=== PATIENT | male | born 1990 | race Caucasian/White ===

== ENCOUNTER 2019-05-15 17:25 | Emergency (ER) | payer SELFPAY ==
[2019-05-15 19:45] VITALS: BP 130/96
--- NOTE | 2019-05-15 19:53 | ER Document Report ---
HPI - HPI Patient complains to provider of: Contact lens issue Time Seen by Provider: 05/15/19 19:31 Pain Level: 5 Context: Patient is otherwise healthy 29-year-old male presents to the emergency department for a "hard" contact stuck in his left eye. Patient states he feels in his left eye but he is unable to get up. Patient is also concerned because his fingers are dirty please he just came from work. States he does not want to place him in his eye. Patient denies any trauma or injury. States he wiped his left eye and then felt his contact lens move. - DERM Skin Color: Normal Past Medical History - General Information source: Patient - Social History Smoking Status: Current Every Day Smoker Frequency of alcohol use: Rare Drug Abuse: Marijuana Family History: Reviewed & Not Pertinent Patient has suicidal ideation: No Patient has homicidal ideation: No Renal/ Medical History: Denies: Hx Peritoneal Dialysis Psychiatric Medical History: Reports: Hx Depression - bipolar Vertical Provider Document - CONSTITUTIONAL Agree With Documented VS: Yes Notes: GENERAL: Alert, interacts well. No acute distress. HEAD: Normocephalic, atraumatic. EYES: Pupils equal, round, and reactive to light. Extraocular movements intact. No conjunctival injection noted bilaterally ENT: Oral mucosa moist, tongue midline. NECK: Full range of motion. Supple. Trachea midline. LUNGS: Clear to auscultation bilaterally, no wheezes, rales, or rhonchi. No respiratory distress. HEART: Regular rate and rhythm. No murmur ABDOMEN: Soft, non-tender. Non-distended. Bowel sounds present in all 4 quadrants. EXTREMITIES: Moves all 4 extremities spontaneously. No edema, normal radial and dorsalis pedis pulses bilaterally. No cyanosis. BACK: no cervical, thoracic, lumbar midline tenderness. No saddle anesthesia, normal distal neurovascular exam. NEUROLOGICAL: Alert and oriented x3. Normal speech. cranial nerves II through XII grossly intact. PSYCH: Normal affect, normal mood. SKIN: Warm, dry, normal turgor. No rashes or lesions noted. Course - Re-evaluation Re-evalutation: Contact lens was easily removed with a moist sterile cotton tip applicator. Once contact lens was removed patient states "oh that feels so much better." Patient is denying any pain, foreign body sensation, irritation to the left eye. Patient states "oh I can see again." Discussed potential fluorescein stain of the left eye to rule out corneal abrasion due to contact lens. Patient wishes to refuse at this time. States "it feels great, I do not feel like I have anything stuck in my eye." Discussed proper use of contact lenses and need to follow-up with ophthalmology. Patient stable for discharge. - Vital Signs Vital signs: Temp Pulse Resp BP Pulse Ox 97.8 F 87 16 130/96 H 97 05/15/19 19:42 05/15/19 19:42 05/15/19 19:42 05/15/19 19:42 05/15/19 17:39 Discharge - Discharge Clinical Impression: Left eye complaint, Wears contact lenses Condition: Stable Disposition: HOME, SELF-CARE Additional Instructions: As we discussed you have been seen and treated in the emergency department for a contact lens stuck in your left eye. Please make sure you use and wear contact lenses as prescribed. 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 Please return to the emergency room for any further concerns.
== END 2019-05-15 20:20 | disposition home or self-care (01) ==
LOC: ER 17:25
DX: T15.92XA Foreign body on external eye, part unspecified, left eye, initial encounter (principal); X58.XXXA Exposure to other specified factors, initial encounter; F17.200 Nicotine dependence, unspecified, uncomplicated
CPT/HCPCS: 99283

== ENCOUNTER 2019-11-15 12:26 | Emergency (ER) | payer OTHER ==
[2019-11-15] MEDS ORDERED: CYCLOBENZAPRINE HCL 10 MG TABLET PO ONE (14:07)
[2019-11-15] MEDS ORDERED: KETOROLAC TROMETHAMINE INJ/PF 30 MG/1 ML SDV IM ONE (14:07)
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
[2019-11-15 14:49] VITALS: BP 116/72
== END 2019-11-15 14:40 | disposition home or self-care (01) ==
LOC: ER 12:26
DX: M62.830 Muscle spasm of back (principal); S13.4XXA Sprain of ligaments of cervical spine, initial encounter; M62.838 Other muscle spasm; M54.2 Cervicalgia; V59.9XXA Occupant (driver) (passenger) of pick-up truck or van injured in unspecified traffic accident, initial encounter
CPT/HCPCS: 99283; 96372; J1885

== ENCOUNTER 2020-11-13 01:09 | Emergency (ER) | payer SELFPAY ==
[2020-11-13 01:43] LABS: ABSOLUTE BASOPHILS # (AUTO) 0.1 10^3/uL (0.0-0.2); ABSOLUTE EOSINOPHILS # (AUTO) 0.2 10^3/uL (0.0-0.6); ABSOLUTE LYMPHOCYTES (AUTO) 2.8 10^3/uL (0.5-4.7); ABSOLUTE MONOCYTES (AUTO) 0.7 10^3/uL (0.1-1.4); BASOPHILS % (AUTO) 0.6 % (0-2); EOSINOPHILS % (AUTO) 1.6 % (0-6); HEMATOCRIT 43.2 % (37.9-51.0); HEMOGLOBIN 15.1 g/dL (13.5-17.0); LYMPHOCYTES % (AUTO) 23.8 % (13-45); MEAN CORPUSCULAR HEMOGLOBIN 30.4 pg (27.0-33.4); MEAN CORPUSCULAR HGB CONC 34.9 g/dL (32.0-36.0); MEAN CORPUSCULAR VOLUME 87 fl (80-97); MONOCYTES % (AUTO) 5.9 % (3-13); PLATELET COUNT 286 10^3/uL (150-450); RED BLOOD COUNT 4.96 10^6/uL (4.35-5.55); RED CELL DISTRIBUTION WIDTH 12.7 % (11.5-14.0); SEGMENTED NEUTROPHILS % (AUTO) 68.1 % (42-78); TOTAL CELLS COUNTED % (AUTO) 100 %; WHITE BLOOD COUNT 11.8 10^3/uL (4.0-10.5)
--- NOTE | 2020-11-13 01:52 | ER Document Report ---
Entered by CAMILLE OSORIO SCRIBE 11/13/20 0151 Acting as scribe for:MERE DELVALLE IV, MD ED General - General Chief Complaint: Possible Overdose Stated Complaint: TOOK TOO MANY MEDICATION PILLS AT ONCE Primary Care Provider: MADAI ESCALONA MD [Primary Care Provider] - Follow up as needed Mode of Arrival: Ambulatory Information source: Patient, Parent Notes: This 30-year-old male patient presents to the emergency department today after an accidental overdose of trazadone. Patient accidentally took x8 100 mg trazodone at around 12:30 AM this morning. Patient reports he meant to take his normal x2 pills of trazodone with 6 pills of Motrin but instead took 8 trazadone. Mom at bedside reports that the patient has been taking lots of ibuprofen recently due to bad teeth. Patient denies doing this in an attempt to hurt himself. - Related Data Allergies/Adverse Reactions: camphor [From [facility]] Allergy (Verified 11/15/19 14:02) pramoxine [From [facility]] Allergy (Verified 11/15/19 14:02) zinc acetate [From [facility]] Allergy (Verified 11/15/19 14:02) Home Medications: trazadone 200mg PO, trintellix 10mg Past Medical History - General Information source: Patient - Social History Smoking Status: Current Every Day Smoker Cigarette use (# per day): Yes Chew tobacco use (# tins/day): No Frequency of alcohol use: Social Drug Abuse: None Lives with: Family Family History: Reviewed & Not Pertinent Psychiatric Medical History: Reports: Hx Bipolar Disorder, Hx Depression Surgical Hx: Negative Review of Systems - Review of Systems Constitutional: See HPI, Other - accidental overdose of x8 100mg trazadone EENT: No symptoms reported Cardiovascular: No symptoms reported Respiratory: No symptoms reported Gastrointestinal: See HPI, Nausea Genitourinary: No symptoms reported Male Genitourinary: No symptoms reported Musculoskeletal: No symptoms reported Skin: No symptoms reported Hematologic/Lymphatic: No symptoms reported Neurological/Psychological: No symptoms reported -: Yes All other systems reviewed and negative Physical Exam - Vital signs Vitals: Temp 98.6 F 11/13/20 01:11 - Notes Notes: Physical Exam: General: Somnolent but arousable. Answers questions appropriately. Denies suicidal ideation. HEENT: Normocephalic. Atraumatic. PERRL. Extraocular movements intact. Oropharynx clear. Conjunctival injection bilaterally. Neck: Supple. Non-tender. Respiratory: No respiratory distress. Clear and equal breath sounds bilaterally. Cardiovascular: Regular rate and rhythm. Abdominal: Normal Inspection. Non-tender. No distension. Normal Bowel Sounds. Back: No gross abnormalities. Extremities: Moves all four extremities. Upper extremities: Normal inspection. Normal ROM. Lower extremities: Normal inspection. No edema. Normal ROM. Neurological: Normal cognition. AAOx4. Normal speech. Psychological: Normal affect. Normal Mood. Skin: Warm. Dry. Normal color. Course - Re-evaluation Re-evalutation: 11/13/20 04:30 Differential diagnosis: Accidental overdose, intentional prescription drug abuse, intentional overdose 11/13/20 04:43 Medical decision making: Patient's EKG findings appear to be improving. Patient has been resting but is arousable and is maintaining his airway. Plan is to discharge patient once he reaches the 6-hour mariel of observation from the time of actual ingestion. 11/13/20 06:44 6-hour observation mariel is been reached. Patient is resting in bed he is easily awoken and is in no acute distress heart rate is 75, O2 sats are 96%, blood pressure is 105/60, respiration rate is 10. Results of ED MSE discussed with patient and patient's mother. All questions were answered prior to discharge. Emergency signs and symptoms, reasons to return to the emergency department discussed with patient and patient's mother. - Vital Signs Vital signs: Temp Pulse Resp BP Pulse Ox 98.3 F 14 122/64 96 11/13/20 04:30 11/13/20 05:01 11/13/20 05:00 11/13/20 05:01 - Laboratory Results Result Diagrams: 11/13/20 01:20 11/13/20 01:20 Laboratory Results Interpreted: 11/13/20 11/13/20 11/13/20 01:20 01:20 04:07 WBC 11.8 H Glucose 134 H Urine Protein 30 H Urine Urobilinogen 2.0 H Salicylates < 1.0 L Acetaminophen < 10 L Critical Laboratory Results Reviewed: No Critical Results - Radiology Results Critical Radiology Results Reviewed: No Critical Results - EKG Interpretation by Me Additional EKG results interpreted by me: 01/24/21 01:53 EKG obtained on 11/13/2020 at 0130 hrs. was interpreted by this MD. Findings: Normal sinus rhythm, rate 75, normal axis, AL interval appears to be within nor mal limits, P waves preceding QRS complexes, incomplete right bundle branch block is present, QTC is 496, there are no obvious patterns of ST segment elevation, depression or reciprocal changes seen to suggest acute myocardial ischemia or infarction. There is no prior EKG available for comparison. Impression: Normal sinus rhythm with incomplete right bundle branch block and nonspecific ST segments. 11/13/20 04:07 Repeat EKG performed on 11/13/2020 0403 hrs. was interpreted by this MD. Findings: Normal sinus rhythm, rate 86, normal axis, AL interval appears to be within normal limits, P waves preceding QRS complexes, incomplete right bundle branch block is still present, QTC is now 464 down from 496, QRS duration is 104 now, down from 118 on prior EKG, there are no obvious patterns of ST segment elevation, depression or reciprocal changes seen to suggest acute myocardial ischemia or infarction. Impression normal sinus rhythm with incomplete right bundle branch block in nonspecific ST segments. Discharge - Discharge Clinical Impression: Accidental medication overdose Qualifiers: Encounter type: initial encounter Qualified Code(s): T50.901A - Poisoning by unspecified drugs, medicaments and biological substances, accidental (unintentional), initial encounter Condition: Stable Disposition: HOME, SELF-CARE Additional Instructions: Return to the Emergency Department without delay if any worse. Pay attention to the medications you are taking, especially your prescription medications and take them only as prescribed. HOME CARE INSTRUCTIONS & INFORMATION: Thank you for choosing us for your medical needs. We hope you're satisfied with the care you received. After you leave, you must properly care for your problem and, at the same time, observe its progress. Any condition can change. Some illnesses can change rapidly over hours or days. If your condition worsens, return to the Emergency Department or see your physician promptly. ABOUT YOUR X-RAYS AND EKG'S: If you had an EKG or X-rays taken, they have been read by the Emergency Physician. The X-rays and EKG's will also be read by a Radiologist or Production Support Engineer within 24 hours. If discrepancies are noted, you will be notified by telephone. Please be certain the ED has a correct telephone number & address where you can be reached. Also, realize that some fractures or abnormalities do not show up on initial X-rays. If your symptoms continue, see your physician. ABOUT YOUR LABORATORY TEST: If you had laboratory tests, the results have been reviewed by the Emergency Physician. Some test results (for example cultures) may not be available for several days. You will be contacted if any test result shows you need additional treatment. Please be certain the ED has a correct telephone number and address where you can be reached. ABOUT YOUR MEDICATIONS: You will receive instructions on how to take your medicine on the prescription label you receive. Additional information may be provided by the Pharmacy. If you have questions afterwards, call the ED for clarification or further instructions. Some prescribed medications may cause drowsiness. Do not perform tasks such as driving a car or operating machinery without consulting your Pharmacist. If you feel you need a refill of pain medication, your condition will need re-evaluation. Please do not call for a refill of any medication. ABOUT YOUR SIGNATURE: Signature of this document acknowledges to followin. Understanding that you received emergency treatment and that you may be released before al medical problems are known or treated. Please be certain the ED has a correct phone number & address where you can be reached. 2. Acknowledgement that you will arrange for follow-up care as recommended. 3. Authorization for the Emergency Physician to provide information to your follow-up Physician in order to maximize your care. AT ANY TIME, IF YOUR SYMPTOMS CHANGE SIGNIFICANTLY OR WORSEN OR YOU DEVELOP NEW SYMPTOMS, RETURN TO THE EMERGENCY DEPARTMENT IMMEDIATELY FOR RE-EVALUATION. OUR GOAL IS TO PROVIDE EXCELLENT MEDICAL CARE! WE HOPE THAT WE HAVE MET YOUR EXPECTATIONS DURING YOUR EMERGENCY DEPARTMENT VISIT AND THAT YOU FEEL YOU HAVE RECEIVED EXCELLENT CARE! Referrals: MADAI ESCALONA MD [Primary Care Provider] - Follow up as needed I personally performed the services described in the documentation, reviewed and edited the documentation which was dictated to the scribe in my presence, and it accurately records my words and actions.
[2020-11-13] MEDS ORDERED: ONDANSETRON HCL INJ/PF 4 MG/2 ML SDV IV ONE (01:54)
[2020-11-13] MEDS ORDERED: NORMAL SALINE 1000 ML 1,000 ML IV ONE (01:54)
[2020-11-13 01:57] LABS: ALBUMIN 4.7 g/dL (3.5-5.0); ALKALINE PHOSPHATASE 63 U/L (38-126); ANION GAP 12 (5-19); ASPARTATE AMINO TRANSFERASE 27 U/L (17-59); BILIRUBIN,DIRECT 0.3 mg/dL (0.0-0.4); BILIRUBIN,TOTAL 0.4 mg/dL (0.2-1.3); BLOOD UREA NITROGEN 18 mg/dL (7-20); CALCIUM 9.1 mg/dL (8.4-10.2); CARBON DIOXIDE 24 mmol/L (22-30); CHLORIDE 104 mmol/L (98-107); GLUCOSE 134 mg/dL (75-110); POTASSIUM 4.1 mmol/L (3.6-5.0); TOTAL PROTEIN 7.2 g/dL (6.3-8.2)
[2020-11-13 02:12] LABS: ALCOHOL < 10 mg/dL (NONE DETECTED)
[2020-11-13 02:13] LABS: ACETAMINOPHEN < 10 ug/mL (10-30); SALICYLATE < 1.0 mg/dL (2.0-20.0)
[2020-11-13 05:00] LABS: APPEARANCE,URINE CLEAR; BILIRUBIN,URINE NEGATIVE (NEGATIVE); COLOR,URINE YELLOW; GLUCOSE, URINE NEGATIVE (NEGATIVE); KETONES,URINE NEGATIVE (NEGATIVE); LEUKOCYTE ESTERASE,URINE NEGATIVE (NEGATIVE); NITRITE,URINE NEGATIVE (NEGATIVE); PROTEIN,URINE 30 mg/dL (NEGATIVE); URINE SPECIFIC GRAVITY 1.021
[2020-11-13 05:12] LABS: URINE AMPHETAMINES SCREEN NEGATIVE; URINE BARBITURATES SCREEN NEGATIVE; URINE BENZODIAZEPINES SCREEN NEGATIVE; URINE COCAINE SCREEN NEGATIVE; URINE MARIJUANA (THC) SCREEN UNCONFIRMED POSITIVE; URINE METHADONE SCREEN NEGATIVE; URINE PHENCYCLIDINE SCREEN NEGATIVE
[2020-11-13 06:58] VITALS: BP 104/62
--- NOTE | 2020-11-13 08:31 | EKG REPORT ---
SEVERITY:- NORMAL ECG - SINUS RHYTHM ST ELEV, PROBABLE NORMAL EARLY REPOL PATTERN : Confirmed by: David Aguilera MD 13-Nov-2020 08:30:39
--- NOTE | 2020-11-13 08:32 | EKG REPORT ---
SEVERITY:- ABNORMAL ECG - SINUS RHYTHM INCOMPLETE RIGHT BUNDLE BRANCH BLOCK : Confirmed by: David Aguilera MD 13-Nov-2020 08:30:57
--- OUTSIDE RECORDS SUMMARY | 2020-11-15 10:39 | XMS REPORT ---
:1990 [facility] [address] [place] [address] Care Team Providers Name Role Phone ZULAY MCGOWAN Primary Care Physician Unavailable Drake Attending Clinician Unavailable KRIS Attending Clinician Unavailable Allergies, Adverse Reactions, Alerts Allergy Allergy Type Status Severity Reaction(s) Onset Inactive Treat ing Comments Name Date Date Clinician CEFACLOR Drug allergy Active Unknown 2020-09 00:00:0 0 Cefaclor Propensity Active Hives 2019-10 to adverse -06 reactions to 00:00:0 drug 0 CECLOR CECLOR Active 2019-02 00:00:0 0 Medications Ordered Filled Start Stop Current Ordering Indication Dosage Frequency Signature Comments Components Medication Medication Date Date Medication? Clinician (SIG) Name Name prednisoLON 2019-0 No 1[drp] Q.25D Place 1 E acetate 9-21 drop into (PRED 00:00: the left FORTE) 1 % 00 eye 4 ophthalmic (four) suspension times daily Please begin medication after scheduled procedure. ofloxacin 2020-0 No 1[drp] Q.25D Place 1 (OCUFLOX) 8-17 drop into 0.3 % 00:00: the left ophthalmic 00 eye 4 solution (four) times daily Please begin medication after scheduled procedure. prednisoLON 2020-0 No 1[drp] Q.25D Place 1 E acetate 8-17 drop into (PRED 00:00: the left FORTE) 1 % 00 eye 4 ophthalmic (four) suspension times daily Please begin medication after scheduled procedure. oxyCODONE-a 2019- 2020- No 1{tbl} Q6H Take 1 cetaminophe 8-17 08-22 tablet by n 00:00: 23:59 mouth (PERCOCET) 00 :00 every 6 5-325 mg (six) tablet hours as needed for Pain for up to 5 days ofloxacin Yes 1[drp] Q.25D Place 1 (OCUFLOX) 8-05 drop into 0.3 % 00:00: the left ophthalmic 00 eye 4 solution (four) times daily Please begin medication after scheduled procedure. prednisoLON 2019- 2020- No 1[drp] Q.25D Place 1 E acetate 8-05 09-21 drop into (PRED 00:00: 00:00 the left FORTE) 1 % 00 :00 eye 4 ophthalmic (four) suspension times daily Please begin medication after scheduled procedure. olopatadine Yes 1[drp] QD Place 1 (PAZEO) 0.7 1-06 drop into % 00:00: both eyes ophthalmic 00 once daily solution OLANZapine 2018-10 Yes 10mg QD Take 10 mg (ZYPREXA) 1-08 by mouth 10 MG 00:00: nightly tablet 00 escitalopra 2018-10 Yes 10mg QD Take 10 mg m oxalate 08 by mouth (LEXAPRO) 00:00: once daily 10 MG 00 tablet riboflavin No [id number] 1{kit} 5-phosphate (PHOTREXA) cross-linki ng kit riboflavin No [id number] 1{kit} 1 kit, 5-phosphate LEFT Eye, (PHOTREXA) Once, Mon cross-linki 06/06/20 at ng kit 1615, For 1 dose Problems This patient has no known problems. Procedures Procedure Date / Time Performed Performing Clinician Ana radha OFFICE/OUTPATIENT VISIT [facility] 2020-09-20 08:45:00 CXL PROCEDURE - OS - LEFT EYE 2020-06-06 18:43:43 Sugey Goode Results Test Description Test Time Test Comments Text Results Atomic Results Result Comments TSH W/REFLEX TO FT4 2020-09-20 09:48:00 1.58 C-REACTIVE PROTEIN 2020-09-20 09:48:00 0.7 HEPATITIS C AB W/REFL TO HCV RNA, QN, PCR 2020-09-20 09:48:00 Test Item Value Reference Range Comments SIGNAL TO CUT-OFF (test code = 33569516) 0.01 <1.00 HEPATITIS C ANTIBODY (test code = 64081875) NON-REACTIVE NON- REACTIVE SED RATE BY MODIFIED [id number] 09:48:002CBC (INCLUDES DIFF/PLT) 2020-09-20 09:48:00 Test Item Value Reference Range Comments ABSOLUTE MONOCYTES (test code = 34247133) 448 cells/uL 200-95 0 ABSOLUTE NEUTROPHILS (test code = 35588789) 4627 cells/uL 1500 -7800 BASOPHILS (test code = 10639502) 0.3 % MONOCYTES (test code = 51626469) 6.4 % PLATELET COUNT (test code = 59396873) 297 Thousand/uL 140-400 RDW (test code = 07082891) 11.9 % 11.0-15.0 MCH (test code = 72808732) 30.0 pg 27.0-33.0 NEUTROPHILS (test code = 73451615) 66.1 % ABSOLUTE BASOPHILS (test code = 15241471) 21 cells/uL 0-200 ABSOLUTE LYMPHOCYTES (test code = 70144473) 1785 cells/uL 850- 3900 HEMOGLOBIN (test code = 29609840) 15.4 g/dL 13.2-17.1 RED BLOOD CELL COUNT (test code = 60624628) 5.13 Million/uL 4.20 -5.80 MCV (test code = 86773002) 89.9 fL 80.0-100.0 WHITE BLOOD CELL COUNT (test code = 7.0 Thousand/uL 3.8-10.8 58357072) MPV (test code = 21699070) 10.4 fL 7.5-12.5 ABSOLUTE EOSINOPHILS (test code = 69096783) 119 cells/uL 15-5 00 LYMPHOCYTES (test code = 64473355) 25.5 % MCHC (test code = 13071953) 33.4 g/dL 32.0-36.0 EOSINOPHILS (test code = 60400273) 1.7 % HEMATOCRIT (test code = 29815772) 46.1 % 38.5-50.0 COMPREHENSIVE METABOLIC [id number] 09:48:00 Test Item Value Reference Range Comments eGFR NON-AFR. IRANIAN (test code = 115 mL/min/1.73m2 > OR = 60 65619245) CARBON DIOXIDE (test code = 76125768) 24 mmol/L 20-32 AST (test code = 46809811) 17 U/L 10-40 ALT (test code = 37920540) 12 U/L 9-46 CREATININE (test code = 63105711) 0.86 mg/dL 0.60-1.35 ALBUMIN (test code = 70347373) 5.0 g/dL 3.6-5.1 GLOBULIN (test code = 96586638) 2.2 g/dL (calc) 1.9-3.7 CALCIUM (test code = 12785665) 9.7 mg/dL 8.6-10.3 ALBUMIN/GLOBULIN RATIO (test code = 2.3 (calc) 1.0-2.5 92508174) BUN/CREATININE RATIO (test code = NOT APPLICABLE (calc) 6-22 80673728) BILIRUBIN, TOTAL (test code = 0.5 mg/dL 0.2-1.2 92700745) CHLORIDE (test code = 40085082) 105 mmol/L 98-110 eGFR (test code = 133 mL/min/1.73m2 > OR = 60 46469450) POTASSIUM (test code = 97135389) 4.3 mmol/L 3.5-5.3 GLUCOSE (test code = 00234191) 84 mg/dL 65-99 SODIUM (test code = 51524435) 139 mmol/L 135-146 PROTEIN, TOTAL (test code = 60097707) 7.2 g/dL 6.1-8.1 ALKALINE PHOSPHATASE (test code = 60 U/L 36-130 43566946) UREA NITROGEN (BUN) (test code = 12 mg/dL 7-25 25229167) HIV 1/2 ANTIGEN/ANTIBODY,FOURTH GENERATION [id number] 09:48:00NON-REACTIVE CXL Procedure - OS - Left [id number] 18:49:11Time OutConfirmed correct patient, procedure, site, and patient consented. Notes1. 9 mm epithelium was removed2. 1 drop of Photrexa Viscous was applied topically every 2 min for 30 min3. Anterior chamber was checked for riboflavin flare Yellow flare was detected, proceed to the next step4. Ultrasound pachymetry was performed as follows: Since >400 m, proceed to irradiation5. 30 minutes UV exposure with KXL System was applied to the cornea with the following settin nm UV, 3mW/cm26. Photrexa Viscous was applied to the cornea every 2 min during the UV exposure with the KXL system At the conclusion of the procedure, the cornea was irrigated with BSS solution and topical antibiotic and corticosteroid was applied.The patient tolerated the procedure well and was discharged with post-operative instructions.SARS-CoV-2 RNA Resp Ql [id number] 00:00:00 Test Item Value Reference Range Comments SARS-CoV-2 RNA Resp Ql Not detected [facility] Case JOE+probe (test code = ID: COVID [id number]) Assessments Condition Name Status Diagnosis Date Treating Clinici an Major depressive disorder, single episode, Active moderate Abnormal weight loss Active Other fatigue Active Other integration consultant (current) drug therapy Active 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 Encounters Start End Encounter Admission Attending Care Care Encounter Date/Time Date/Time Type Type Clinicians Facility Department ID 2020-09-20 2020-09-20 [id number]:00 08:45:00 [facility] [id number] s [id number] and [id number] [facility], 2020-08-12 2020-08-12 Outpatient [facility] [id number] 00:00:00 00:00:00 2020-08-12 2020-08-12 Outpatient [facility] [id number] 00:00:00 00:00:00 2020-07-11 2020-07-11 Outpatient [facility] [id number] 00:00:00 00:00:00 2020-06-13 2020-06-13 Outpatient SUGEY GOODE [facility] [id number] 13:52:42 13:52:42 2020-06-07 2020-06-07 [id number] 13:19:32 16:39:26 2020-06-06 2020-06-06 [id number] 15:14:27 15:14:27 2020-06-06 2020-06-06 Outpatient [facility] [id number] 00:00:00 00:00:00 2020-06-05 2020-06-05 Outpatient [facility] [id number] 11:18:09 11:18:09 2020-05-25 2020-05-25 Outpatient [facility] [id number] 00:00:00 00:00:00 2020-05-20 2020-05-20 Outpatient [facility] [id number] 00:00:00 00:00:00 2019-02-18 2019-02-18 [facility] [id number] 00:00:00 00:00:00 [facility] [id number] Evaluation Services [id number] Plan of Treatment Planned Activity Planned Date Details Comments Future Scheduled Test [code = ] Future Scheduled Test [code = ] Future Scheduled Test [code = ] Future Scheduled Test [code = ] Future Scheduled Test [code = ] Future Scheduled Test [code = ] Future Scheduled Test [code = ] Future Appointment 2021-01-03 15:30:00 Sugey Goode MD, [address] [place] [id number] Future Appointment 2021-01-02 15:00:00 Future Appointment 2021-01-01 11:50:00 Social History Social Habit Start Date Stop Date Comments Exposure to SARS-CoV-2 (event) Tobacco use and exposure 2019-10-26 00:00:00 2019-10-26 00:00:00 Smoking Status Start Date Stop Date Current every day smoker 2019-10-26 00:00:00 2019-10-26 00:0 0:00 Vital Signs Vital Name Observation Time Observation Value Comments Systolic blood pressure 2020-06-06 15:44:00 118 mm[Hg] Diastolic blood pressure 2020-06-06 15:44:00 78 mm[Hg]
== END 2020-11-13 06:58 | disposition home or self-care (01) ==
LOC: ER 01:09
DX: T43.211A Poisoning by selective serotonin and norepinephrine reuptake inhibitors, accidental (unintentional), initial encounter (principal); K08.89 Other specified disorders of teeth and supporting structures; Z88.8 Allergy status to other drugs, medicaments and biological substances; Z79.899 Other long term (current) drug therapy; F17.210 Nicotine dependence, cigarettes, uncomplicated
CPT/HCPCS: 93005; 99284; 96361; 96374; 36415; 80307 ×4; 83735; 85025; 80053; 81001; 93010; J2405; J7030